=== PATIENT | male | born 1960 | race Caucasian/White ===

== ENCOUNTER 2017-07-31 11:44 | Inpatient (IN) | payer OTHER ==
[~2017-07-31] VITALS: Ht 180.3 cm; Wt 95.7 kg
[~2017-07-31 11:44] MED LIST: VICODIN ES 7501 TAB PO
[2017-07-31 11:55] VITALS: BP 112/90
[2017-07-31] MEDS ORDERED: PRILOSEC20 M1 PO (11:57)
[2017-07-31] MEDS ORDERED: AMITRIPTYLINE10 MG PO (11:57)
[2017-07-31 12:23] LABS: BASO # 0.1 10*3/uL (0.0-0.1); BASO % 0.9 % (0.0-1.0); EOS # 0.2 10*3/uL (0.0-0.4); EOS % 1.2 % (1.0-4.0); HEMATOCRIT 50.5 % (42.0-52.0); HEMOGLOBIN 17.8 g/dl (14.0-18.0); MEAN CELL VOLUME 83.2 fl (80.0-94.0); MEAN CORPUSCULAR HGB 29.3 pg (27.0-31.0); MEAN CORPUSCULAR HGB CONC 35.2 g/dl (33.0-37.0); MEAN PLATELET VOLUME 10.8 fl (9.6-12.3); MONO # 1.4 10*3/uL (0.1-1.0); MONO % 10.2 % (3.0-9.0); NEUT # 8.8 10*3/uL (2.3-7.9); NEUT % 64.6 % (47.0-73.0); PLATELET COUNT AUTOMATED 331 10*3/uL (130-400); RED BLOOD COUNT 6.07 10*6/uL (4.50-5.90); RED CELL DISTRI WIDTH 12.5 % (0-14.5); WHITE BLOOD COUNT 13.7 10*3/uL (4.8-10.8)
[2017-07-31 12:47] LABS: ALBUMIN 4.2 gm/dl (3.1-4.5); CREATININE 1.69 mg/dL (0.70-1.30); POTASSIUM 3.8 mmol/L (3.5-5.1); TOTAL PROTEIN 8.3 gm/dL (6.4-8.2)
[2017-07-31 12:56] LABS: BILIRUBIN 1+ (NEGATIVE); BLOOD NEGATIVE (NEGATIVE); CLARITY CLEAR (CLEAR); COLOR YELLOW (YELLOW); GLUCOSE NEGATIVE (NEGATIVE); KETONE NEGATIVE (NEGATIVE); LEUKO ESTERASE NEGATIVE (NEGATIVE); NITRITE NEGATIVE (NEGATIVE); PH 5.5 (5.0-9.0); UROBILINOGEN 0.2 E.U./dl (0.2-1.0)
[2017-07-31 13:03] LABS: HYALINE CAST TNTC
[2017-07-31 13:04] LABS: BACTERIA 2+; MUCOUS TRACE
[2017-07-31 14:00] VITALS: BP 111/70
[2017-07-31 14:05] VITALS: BP 111/70
[2017-07-31] MEDS ORDERED: DICYCLOMINE HCL10 MG PO (14:59)
[2017-07-31] MEDS ORDERED: FLOMAX0.4 MG PO (14:59)
[2017-07-31] MEDS ORDERED: VALIUM5 MG PO (15:00)
[2017-07-31] MEDS ORDERED: LEVSIN-SL0.125 MG SL (15:00)
[2017-07-31 17:51] VITALS: BP 167/81
[2017-07-31 20:00] VITALS: BP 115/85
[2017-08-01] VITALS: BP 126/97
[2017-08-01 05:58] LABS: BASO # 0.1 10*3/uL (0.0-0.1); BASO % 1.1 % (0.0-1.0); EOS # 0.3 10*3/uL (0.0-0.4); EOS % 3.4 % (1.0-4.0); HEMATOCRIT 44.9 % (42.0-52.0); HEMOGLOBIN 15.8 g/dl (14.0-18.0); LYMPH # 1.8 10*3/uL (1.3-4.4); LYMPH % 21.8 % (27.0-41.0); MEAN CELL VOLUME 84.7 fl (80.0-94.0); MEAN CORPUSCULAR HGB 29.8 pg (27.0-31.0); MEAN CORPUSCULAR HGB CONC 35.2 g/dl (33.0-37.0); MEAN PLATELET VOLUME 10.8 fl (9.6-12.3); MONO # 0.9 10*3/uL (0.1-1.0); MONO % 10.5 % (3.0-9.0); NEUT # 5.1 10*3/uL (2.3-7.9); NEUT % 62.5 % (47.0-73.0); RED CELL DISTRI WIDTH 12.6 % (0-14.5); WHITE BLOOD COUNT 8.2 10*3/uL (4.8-10.8)
[2017-08-01 06:08] LABS: PLATELET COUNT AUTOMATED 217 10*3/uL (130-400)
[2017-08-01 06:16] LABS: ALBUMIN 3.4 gm/dl (3.1-4.5); ALKALINE PHOSPHATASE 70 U/L (45-117); CHLORIDE 105 mmol/L (98-107); CHOLESTEROL 239 mg/dL (<200); CREATININE 1.17 mg/dL (0.70-1.30); HDL CHOLESTEROL 30 mg/dl (40-60); LDL CHOLESTEROL 160 mg/dL (9-159); PHOSPHOROUS 3.2 mg/dL (2.5-4.9); POTASSIUM 4.5 mmol/L (3.5-5.1); SGOT/AST 30 IU/L (3-35); SODIUM 138 mmol/L (136-145); TOTAL PROTEIN 6.4 gm/dL (6.4-8.2); TRIGLYCERIDES 244 mg/dl (<150); VLDL CHOLESTEROL 49 mg/dL (6-40)
[2017-08-01 06:22] LABS: FREE T4 1.05 ng/dl (0.76-1.46); SGPT/ALT 35 U/L (12-78)
[2017-08-01 06:29] LABS: BUN 26 mg/dl (7-24)
[2017-08-01 08:00] VITALS: BP 123/92
[2017-08-01 08:19] LABS: VITAMIN D, 25-HYDROXY 16.1 ng/mL (30-100)
[2017-08-01] MEDS ORDERED: FLAGYL500 MG PO (11:33)
[2017-08-01] MEDS ORDERED: CIPRO500 MG PO (11:33)
== END 2017-08-01 11:53 | disposition home or self-care (01) | DRG 871 ==
LOC: ED 11:44 → EDHOLD 13:25 → 4E 13:25
PROVIDERS: Internal Medicine; Nurse Practitioner Family
DX: A41.9 Sepsis, unspecified organism (principal); N17.0 Acute kidney failure with tubular necrosis; K57.32 Diverticulitis of large intestine without perforation or abscess without bleeding; E87.1 Hypo-osmolality and hyponatremia; E87.8 Other disorders of electrolyte and fluid balance, not elsewhere classified; E86.0 Dehydration; K21.9 Gastro-esophageal reflux disease without esophagitis; F12.90 Cannabis use, unspecified, uncomplicated; Z79.899 Other long term (current) drug therapy; Z80.3 Family history of malignant neoplasm of breast; Z84.89 Family history of other specified conditions

== ENCOUNTER 2018-01-16 11:01 | Emergency (ER) | payer OTHER ==
[~2018-01-16] VITALS: Ht 177.8 cm; Wt 102.1 kg
[~2018-01-16 11:01] MED LIST changes: +AMITRIPTYLINE10 MG PO; +CIPRO500 MG PO; +DICYCLOMINE HCL10 MG PO; +FLAGYL500 MG PO; +FLOMAX0.4 MG PO; +LEVSIN-SL0.125 MG SL; +PRILOSEC20 M1 PO; +VALIUM5 MG PO
== END 2018-01-16 12:28 | disposition home or self-care (01) ==
LOC: ED 11:01
DX: S93.402A Sprain of unspecified ligament of left ankle, initial encounter (principal); K21.9 Gastro-esophageal reflux disease without esophagitis; F12.10 Cannabis abuse, uncomplicated; Z79.899 Other long term (current) drug therapy; W01.0XXA Fall on same level from slipping, tripping and stumbling without subsequent striking against object, initial encounter; Y93.K1 Activity, walking an animal; Y92.89 Other specified places as the place of occurrence of the external cause; Y99.8 Other external cause status

== ENCOUNTER → 2019-08-17 | Outpatient (CLI) | payer OTHER | END | disposition home or self-care (01) | LOC: MRI 08-15 08:00 | DX: S46.911A Strain of unspecified muscle, fascia and tendon at shoulder and upper arm level, right arm, initial encounter (principal); M19.011 Primary osteoarthritis, right shoulder; M25.411 Effusion, right shoulder; X58.XXXA Exposure to other specified factors, initial encounter; Y93.89 Activity, other specified; Y92.89 Other specified places as the place of occurrence of the external cause; Y99.8 Other external cause status ==

== ENCOUNTER → 2020-11-13 | Outpatient (CLI) | payer OTHER ==
[2020-11-13 12:05] LABS: MEAN CELL VOLUME 84.5 fl (80.0-94.0); MEAN CORPUSCULAR HGB 29.2 pg (27.0-31.0); MEAN CORPUSCULAR HGB CONC 34.5 g/dl (33.0-37.0); MEAN PLATELET VOLUME 10.8 fl (9.6-12.3); PLATELET COUNT AUTOMATED 284 10*3/uL (130-400); RED BLOOD COUNT 6.27 10*6/uL (4.50-5.90); RED CELL DISTRI WIDTH 13.2 % (0-14.5); RETICULOCYTE % 1.61 % (0.50-2.50); WHITE BLOOD COUNT 14.4 10*3/uL (4.8-10.8)
[2020-11-13 12:20] LABS: ALBUMIN 4.4 gm/dl (3.1-4.5); ALKALINE PHOSPHATASE 108 U/L (45-117); BUN 23 mg/dl (7-24); CHLORIDE 97 mmol/L (98-107); CHOLESTEROL 310 mg/dL (<200); CREATININE 1.39 mg/dL (0.70-1.30); GAMMA GLUTAMYL TRANSPEPTIDASE 45 U/L (15-85); IRON 64 ug/dL (65-175); LDL CHOLESTEROL 221 mg/dL (9-159); LIPASE 49 U/L (73-393); POTASSIUM 3.8 mmol/L (3.5-5.1); SGOT/AST 27 IU/L (3-35); SGPT/ALT 45 U/L (12-78); SODIUM 131 mmol/L (136-145); TOTAL IRON BINDING CAPACITY 398 ug/dl (250-450); TOTAL PROTEIN 8.6 gm/dL (6.4-8.2); TRIGLYCERIDES 275 mg/dl (<150); URIC ACID 7.6 mg/dL (3.5-7.2)
[2020-11-13 12:21] LABS: BILIRUBIN Negative (Negative); BLOOD Negative (Negative); CLARITY Clear (Clear); COLOR Yellow (Yellow); GLUCOSE Negative (Negative); KETONE Trace (Negative); LEUKO ESTERASE Trace (Negative); NITRITE Negative (Negative); PH 5.5 (4.5-8.0); SPECIFIC GRAVITY 1.015 (1.001-1.030)
[2020-11-13 12:48] LABS: FERRITIN 346.7 ng/mL (22.0-322.0); VITAMIN D, 25-HYDROXY 17.1 ng/mL (30-100)
[2020-11-13 12:53] LABS: ATYPICAL LYMPHS 2 % (0-0); PLATELET SUFFICIENCY NORMAL (NORMAL); TOTAL CELLS COUNTED 100 #CELLS
[2020-11-13 12:54] LABS: BACTERIA TRACE; EPITHELIAL CELLS 0-2; MUCOUS TRACE; RBC 0-2 rbc/hpf (0-2)
[2020-11-14 05:06] LABS: TOTAL PROTEIN, SERUM 7.9 g/dL (6.0-8.5)
[2020-11-14 08:08] LABS: HEP B CORE AB, IGM Negative (Negative); HEPATITIS B SURFACE AG Negative (Negative); HEPATITIS C VIRUS ANTIBODY <0.1 s/co (0.0-0.9); RHEUMATOID ARTHRITIS FACTOR <10.0 IU/mL (0.0-13.9)
[2020-11-14 13:06] LABS: ANTI-DSDNA ANTIBODIES 1 IU/mL (0-9)
[2020-11-14 14:08] LABS: A/G RATIO 1.1 (0.7-1.7); ALBUMIN 4.2 g/dL (2.9-4.4); ALPHA-1-GLOBULIN 0.2 g/dL (0.0-0.4); ALPHA-2-GLOBULIN 0.8 g/dL (0.4-1.0); BETA GLOBULIN 1.3 g/dL (0.7-1.3); GAMMA GLOBULIN 1.4 g/dL (0.4-1.8); GLOBULIN, TOTAL 3.7 g/dL (2.2-3.9); M-SPIKE Not Observed g/dL (Not Observed)
[2020-11-16 12:07] LABS: COPROPORPHYRIN (CP) I 30 ug/L (0-15); COPROPORPHYRIN (CP) III 7 ug/L (0-49); HEPTACARBOXYL (7-CP) 5 ug/L (0-2); HEXACARBOXYL (6-CP) <1 ug/L (0-1); PENTACARBOXYL (5-CP) <1 ug/L (0-2); UROPORPHYRINS (UP) 15 ug/L (0-20)
== END | disposition home or self-care (01) ==
LOC: LAB 11:31
PROVIDERS: ATTEND Family Medicine
DX: E55.9 Vitamin D deficiency, unspecified (principal); R53.83 Other fatigue; R79.89 Other specified abnormal findings of blood chemistry; Z79.899 Other long term (current) drug therapy

== ENCOUNTER → 2021-01-17 | Outpatient (CLI) | payer OTHER ==
[~2021-01-17] MED LIST changes: +COREG3.125 MG PO; +CYCLOBENZAPRINE10 MG PO; +LIPITOR10 MG PO
[2021-01-21 10:06] LABS: COPROPORPHYRIN (CP) I 19 ug/L (0-15); COPROPORPHYRIN (CP) III 55 ug/L (0-49); HEPTACARBOXYL (7-CP) 4 ug/L (0-2); HEXACARBOXYL (6-CP) <1 ug/L (0-1); PENTACARBOXYL (5-CP) <1 ug/L (0-2); UROPORPHYRINS (UP) 14 ug/L (0-20)
== END | disposition home or self-care (01) ==
LOC: LAB 13:38
PROVIDERS: ATTEND Family Medicine
DX: E80.20 Unspecified porphyria (principal)

== ENCOUNTER → 2021-02-11 | Outpatient (CLI) | payer OTHER ==
[2021-02-11 12:09] LABS: ALBUMIN 3.7 gm/dl (3.1-4.5)
[2021-02-11 12:11] LABS: TOTAL PROTEIN 7.6 gm/dL (6.4-8.2)
== END | disposition home or self-care (01) ==
LOC: LAB 09:42
PROVIDERS: ATTEND Family Medicine
DX: R53.83 Other fatigue (principal); R79.89 Other specified abnormal findings of blood chemistry; E78.5 Hyperlipidemia, unspecified

== ENCOUNTER → 2021-11-18 | Outpatient (CLI) | payer OTHER ==
[2021-11-18 09:11] LABS: CREATININE 0.76 mg/dL (0.70-1.30)
== END ==
LOC: LAB 08:15 → CT 08:15
PROVIDERS: Radiology Diagnostic Radiology; ATTEND Family Medicine
DX: K57.30 Diverticulosis of large intestine without perforation or abscess without bleeding (principal); I70.1 Atherosclerosis of renal artery; N28.1 Cyst of kidney, acquired; E27.8 Other specified disorders of adrenal gland; K43.9 Ventral hernia without obstruction or gangrene; K40.90 Unilateral inguinal hernia, without obstruction or gangrene, not specified as recurrent; M71.22 Synovial cyst of popliteal space [Baker], left knee; M71.21 Synovial cyst of popliteal space [Baker], right knee; I74.09 Other arterial embolism and thrombosis of abdominal aorta

== ENCOUNTER → 2024-08-02 | Outpatient (CLI) | payer BC | END | disposition home or self-care (01) | LOC: RAD 11:44 | PROVIDERS: ATTEND Family Medicine | DX: M47.816 Spondylosis without myelopathy or radiculopathy, lumbar region (principal); M48.07 Spinal stenosis, lumbosacral region ==